=== PATIENT | female | born 1960 | race Caucasian/White ===

== ENCOUNTER 2016-09-12 17:55 | Emergency (ER) | payer OTHER ==
[2016-09-12 18:07] VITALS: BP 136/75
[2016-09-12] MEDS ORDERED: BUFFERED LIDOCAINE 10 ML SYRINGE ONE (18:17)
--- NOTE | 2016-09-12 18:20 | ED Physician Documentation ---
PD HPI UPPER EXT INJURY - Stated complaint Stated Complaint: RT THUMB LAC - Chief complaint Chief Complaint: Laceration - History obtained from History obtained from: Patient - History of Present Illness Location: Other (Left handed woman who cut the tip off her right thumb just prior to arrival at home, she brings the piece of skin with her. Tetanus is up- to-date.) Review of Systems Constitutional: denies: Fever, Chills Skin: denies: Rash, Lesions Musculoskeletal: denies: Neck pain, Back pain PD PAST MEDICAL HISTORY - Present Medications Home Medications: Ambulatory Orders Medication Instructions Recorded Confirmed Cephalexin [Keflex] 500 mg PO QID #20 capsule 09/12/16 HYDROcod/ACETAM 5/325 [[place] 5/325] 1 - 2 ea PO Q6H PRN #15 tablet 09/12/16 - Allergies Allergies/Adverse Reactions: Allergies Allergy/AdvReac Type Severity Reaction Status Date / Time codeine AdvReac Unknown Verified 09/12/16 18:08 morphine AdvReac Unknown Verified 09/12/16 18:08 PD ED PE NORMAL - Vitals Vital signs reviewed: Yes - General General: Alert and oriented X 3, No acute distress - Extremities Extremities: Other (She has a complete avulsion/amputation of the skin of the left thumb not involving the nail bed with the matching piece of skin with her on ice.) - Neuro Neuro: Alert and oriented X 3, Normal speech - Psych Psych: Normal mood, Normal affect Results - Vitals Vitals: Vital Signs - 24 hr 09/12/16 18:06 Temperature 37.1 C Heart Rate 68 Respiratory 17 Rate Blood Pressure 136/75 H O2 Saturation 97 Oxygen O2 Source Room air Procedures - Laceration (location) R thumb tip Length in cm: 2 Wound type: Curved Neurovascular status: Sensory intact, Motor intact Anesthesia: Lidocaine 1%, With bicarb (dig block) Wound Preparation: Betadine, Irrigated copiously NS Skin layer closure: Other (the tip was sutured back on with 6 x 5-0 nylon) Other: Tetanus UTD Complexity: Simple Departure - Departure Disposition: 01 Home, Self Care Clinical Impression: Traumatic amputation of finger tip Qualifiers: Encounter type: initial encounter Qualified Code(s): S68.129A - Partial traumatic metacarpophalangeal amputation of unspecified finger, initial encounter Condition: Good Record reviewed to determine appropriate education?: Yes Instructions: ED Laceration Amputation Finger Tip Open Tx Prescriptions: Cephalexin [Keflex] 500 mg PO QID #20 capsule HYDROcod/ACETAM 5/325 [[place] 5/325] 1 - 2 ea PO Q6H PRN #15 tablet PRN Reason: Pain Comments: Come back for any signs of infection which would include: Redness, swelling, drainage, increased pain, or fevers. Follow-up with your physician in 10-14 days for suture removal. Your blood pressure was elevated today on check into the emergency department. This does not mean that you have hypertension, it is a common phenomenon to come to the emergency department and have elevated blood pressure. I recommend that she see her primary care physician within the week to have it rechecked when you are feeling better.
[2016-09-12] MEDS ORDERED: CEPHALEXIN 250 MG CAPSULE PO STA (18:48)
[2016-09-12] MEDS ORDERED: CEPHALEXIN 250 MG CAPSULE PO ONE (18:49)
== END 2016-09-12 18:51 | disposition home or self-care (01) ==
LOC: ED 17:55
DX: S61.011A Laceration without foreign body of right thumb without damage to nail, initial encounter (principal); W26.0XXA Contact with knife, initial encounter; Y92.009 Unspecified place in unspecified non-institutional (private) residence as the place of occurrence of the external cause; R03.0 Elevated blood-pressure reading, without diagnosis of hypertension
CPT/HCPCS: 12001; 99283; A9270